=== PATIENT | male | born 2000 | race African-American/Black ===

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

== ENCOUNTER 2020-10-06 08:33 | Emergency (ER) | payer BC, SELFPAY ==
[2020-10-06 08:34] VITALS: BP 155/81; PULSE 124; RESP 16; TEMP 36.7; O2SAT 100; BMI 20.3
--- NOTE | 2020-10-06 08:58 | US_ITS ---
. INDICATION: Testicular pain -- LEFT TESTICULAR PAIN ALMOST A MONTH SOMETIMES THE RIGHT TOO EXAMINATION: Ultrasound US Scrotum (Contents) TECHNIQUE: Realtime ultrasound of the testicles was performed with grayscale, Color Doppler and spectral Doppler analysis. COMPARISON: None. FINDINGS: RIGHT: TESTIS: 4.3 cm x 2.7+ or by 2.2. Normal in size and echotexture, without focal lesion. COLOR DOPPLER: Normal arterial flow present in the testicle with monophasic waveforms. EPIDIDYMIS: Normal in size and echotexture, without focal lesion. [Normal color Doppler flow pattern in the epididymis. HYDROCELE: None. VARICOCELE: None. LEFT: TESTIS: 4.2 cm x 2.75 x 2.1. Normal in size and echotexture, without focal lesion. COLOR DOPPLER: Normal arterial flow present in the testicle with monophasic waveforms. EPIDIDYMIS: Normal in size and echotexture, without focal lesion. [Normal color Doppler flow pattern in the epididymis. HYDROCELE: None. VARICOCELE: None. US/Testicular with Arterial Flow IMPRESSION: Unremarkable bilateral testicular ultrasound. Electronically Signed: Dennys Heranndez MD at 11:26 EDT , Service support ,
[2020-10-06 09:25] LABS: Red Blood Cells-Urine 0 SEEN /hpf (0-5)
[2020-10-06 09:29] LABS: Color, Urine Yellow (Yellow); Glucose, Dipstick Normal (Normal); Ketone-Dipstick 15 mg/dl (Negative); Leukocyte Esterase-Dipstick 25 /ul (Negative); Nitrite-Dipstick Negative (Negative); Occult Blood-Urine 10 /ul (Negative); Protein-Dipstick Negative (Negative); Specific Gravity, Urine 1.025 (1.002-1.030); Urine Bilirubin Dipstick Negative (Negative); Urine Clarity Sl. Cloudy (Clear); Urine Urobilinogen Normal (Normal)
[2020-10-06 09:29] LABS: Absolute Neutrophil Count 5.8 X10^3/uL (2.0-7.7); Basophil# 0.05 X10^3/uL; Basophil% 0.6 % (0-1); Eosinophil# 0.05 X10^3/uL; Eosinophils% 0.6 % (0-5); Hematocrit 50.7 % (40-54); Lymphocyte % 21.1 % (19-41); Mean Corp Hgb Conc 33.5 g/dL (32-36); Mean Corpuscular Hgb 26.7 pg (27.0-32.0); Mean Corpuscular Volume 79.6 fL (80-94); Mean Platelet Vol. 10.3 fl (6.2-12.0); Monocyte# 0.83 X10^3/uL; Monocyte% 9.7 % (0-10); NRBC Flagged by Analyzer 0 % (0-5); Neutrophil # 5.78 X10^3/uL (2.7-7.7); Neutrophil % 67.6 % (47-70); Platelet Count 266 K/mm3 (150-450); RBC Distribution Width CV 12.9 % (11.6-14.6); RBC Distribution Width SD 36.7 fl (35.1-43.9); Red Blood Count 6.37 M/mm3 (4.6-6.2); White Blood Count 8.5 K/mm3 (4.4-11.0)
[2020-10-06 09:37] LABS: Bacteria 1+ /hpf (None Seen); Mucous, Urine RARE /hpf (<or=2+); Squamous Epithelial Cells - UA 0-5 SEEN /hpf (0-5); White Blood Cells 0-5 SEEN /hpf (0-5)
[2020-10-06 09:42] LABS: Anion Gap 7 (5-15); BUN 11 mg/dL (7-18); BUN/Creat Ratio 8.9 RATIO (10-20); Calcium,Total 9.3 mg/dL (8.5-10.1); Chloride 101 mmol/L (98-107); Creatinine, Serum 1.24 mg/dL (0.70-1.30); EST Glomerular Filtration Rate 79 mL/min (>60); Est Glom Filt Rate - Afr Amer 95 mL/min (>60); Estimated Creatinine Clearance 79.26 ml/min; Glucose 73 mg/dL (74-106); Potassium 3.9 mmol/L (3.5-5.1); Sodium Level 137 mmol/L (136-145)
--- NOTE | 2020-10-06 11:18 | ED.DCSUM_ITS ---
History of Present Illness Chief Complaint: Male Pain/Injury Narrative: Patient presenting for evaluation secondary to genitourinary pain. Patient states that over the course of about the last month he has been dealing with bilateral testicular pain. He feels as if he has having issues with maintaining an erection as well. He denies any dysuria. He denies any hematuria. He denies any urethral discharge. He reports that he has been undergoing work-up from urgent care, he was tested for sexually transmitted infections and that was noted to be negative. Patient now tells me that he has a minimal amount of suprapubic pressure associated with this. He denies any bulging. He denies any sores on his skin. He is never had any injuries, no prior similar episodes in the past. Patient was referred here by urgent care. Denies any fevers chills night sweats or unintended weight loss. Past Medical History - Allergies and Home Meds Allergies/Adverse Reactions: Allergies amoxicillin [From Augmentin] Allergy (Verified 10/06/20 08:37) Rash clavulanic acid [From Augmentin] Allergy (Verified 10/06/20 08:37) Rash Primary Care Physician: Mike Stephens MD [Primary Care Provider] - Prior records reviewed: Yes Past Medical History: None Surgical History: noncontributory Smoking Status: Current every day smoker Alcohol: None Drugs: None Review of Systems All systems negative except as indicated General: Denies: Chills, Fever, Sweats Eyes: Denies: Visual changes - bilaterally, Diplopia ENT: Denies: Rhinorrhea, Sore throat Cardiovascular: Denies: Chest pain, Palpitations Respiratory: Denies: Dyspnea, Cough, Dyspnea on exertion Gastrointestinal: Denies: Abdominal pain, Nausea, Vomiting, Diarrhea, Melena, Hematochezia Genitourinary: Reports: - - Testicular pain and penile pain Musculoskeletal: Denies: Back pain, Extremity Pain Skin: Denies: Rash, Wounds Neurological: Denies: Headache, Weakness, Numbness Physical Exam Vital Signs/Narrative: Vital Signs Temp Pulse Resp BP Pulse Ox 10/06/20 08:34 98.0 F 124 H 16 155/81 H 100 Inital Vital Signs reviewed: Yes General: Well nourished, Well developed, No Acute Distress Head: Normocephalic, Atraumatic Eyes: Perrl, EOMI. Negative for: Pale conjunctiva, Scleral icterus ENT: Moist mucous membranes, No rhinorrhea Neck: Supple, Nontender Cardiovascular: Regular rhythm, No murmurs, Tachycardia Respiratory: No distress, CTA bilaterally, Chest nontender Abdomen: Soft, Nontender, Nondistended, Normal bowel sounds, - - Patient complains of suprapubic pain but this is not reproducible on palpation : - - Normal external genitalia no evidence of skin lesions. No evidence of inguinal lymphadenopathy. No palpable hernias. Normal inguinal canal. Testicles are in a normal lie. Patient complains of diffuse tenderness to palpation. No palpable masses. Penis appears normal, no urethral discharge. Back: Nontender, Normal Inspection Extremities: Nontender, No edema Skin: Normal color, No rash Neurological: Alert, Oriented x3, Cranial nerves II-XII grossly intact, Normal Strength, Normal Sensation Psychological: Normal affect, Normal Mood Diagnostic/Tx/Re-eval Clinical Impression(s) from Imaging Studies Testicular Ultrasound 10/06/20 08:58 IMPRESSION: Unremarkable bilateral testicular ultrasound. Electronically Signed: Dennys Hernandez MD at 11:26 EDT , Service support , Laboratory Data 10/06/20 10/06/20 10/06/20 08:45 09:00 09:00 WBC 8.5 RBC 6.37 H Hgb 17.0 H Hct 50.7 MCV 79.6 L MCH 26.7 L MCHC 33.5 RDW Std Deviation 36.7 RDW Coeff of Ilan 12.9 Plt Count 266 MPV 10.3 Immature Gran % (Auto) 0.400 Neut % (Auto) 67.6 Lymph % (Auto) 21.1 [place] % (Auto) 9.7 Eos % (Auto) 0.6 Baso % (Auto) 0.6 Absolute Neuts (auto) 5.8 Absolute Lymphs (auto) 1.80 Nucleated RBC % 0 Sodium 137 Potassium 3.9 Chloride 101 Carbon Dioxide 29.0 Anion Gap 7 BUN 11 Creatinine 1.24 Estim Creat Clear Calc 79.26 Est GFR (MDRD) Af Amer 95 Est GFR (MDRD) Non-Af 79 BUN/Creatinine Ratio 8.9 L Glucose 73 L Calcium 9.3 Urine Color Yellow Urine Clarity Sl. Cloudy Urine pH 5.0 Ur Specific [place] 1.025 Urine Protein Negative Urine Glucose (UA) Normal Urine Ketones 15 H Urine Occult Blood 10 H Urine Nitrite Negative Urine Bilirubin Negative Urine Urobilinogen Normal Ur Leukocyte Esterase 25 H Urine RBC 0 SEEN Urine WBC 0-5 SEEN Ur Squamous Epith Cells 0-5 SEEN Urine Bacteria 1+ Urine Mucus RARE - Medical Decision Making Patient presenting secondary to genitourinary pain. Patient was significantly tachycardic on arrival, IV was established laboratory studies were obtained. CBC chemistry found to be unremarkable. Patient does not have a history of sickle cell disease or trait I do not think that this is a presentation of a high flow or low flow priapism. Testicular ultrasound was obtained was found to be negative. Urinalysis does not show significant evidence of infection. Truthfully on a physical exam standpoint the patient has a completely normal exam. I will refer the patient to urology for further work-up and treatment. Patient was discharged in improved condition with a heart rate of 80. ED Disposition - Plan for ED Patient: Disposition: Home or Assisted Living Diagnosis: Testicular pain Instructions: ED Testicular Pain, Unclear Cause Referrals: Yunior Jordan MD [STAFF PHYSICIAN] - 1-2 Weeks
[2020-10-06 11:40] VITALS: BP 110/66; PULSE 80; RESP 16; O2SAT 99
== END 2020-10-06 12:12 | disposition home or self-care (01) ==
PROVIDERS: Emergency Provider Emergency Medicine; PCP Pediatrics
DX: N50.812 Left testicular pain (principal); N50.811 Right testicular pain; F17.200 Nicotine dependence, unspecified, uncomplicated; Z88.0 Allergy status to penicillin; Z88.1 Allergy status to other antibiotic agents
CPT/HCPCS: 76870; 80048; 81001; 85025; 93976; 99283; A4216

== ENCOUNTER 2020-12-22 10:56 | Emergency (ER) | payer BC, SELFPAY ==
[2020-12-22 10:57] VITALS: BP 148/90; PULSE 100; RESP 16; TEMP 36.4; O2SAT 99; BMI 24.2
--- NOTE | 2020-12-22 11:08 | US_ITS ---
STUDY: SCROTUM ULTRASOUND REASON FOR EXAM: Male, 20 years old. Bilateral testicular pain worse on the left side. TECHNIQUE: Ultrasound evaluation of the scrotum was performed with color Doppler and static cruz-scale imaging. COMPARISON: None. FINDINGS: RIGHT TESTICLE INTRATESTICULAR: There is a normal size of the right testicle. The right testicle measures 4.3 cm x 2.7 cm x 2.3 cm. There is a homogenous echotexture. There is normal arterial and normal venous vascularity. There is no demonstrated right testicular mass or cyst. EXTRATESTICULAR: The epididymis is normal in size. The epididymis head measures 1 cm x 1.6 cm x 0.8 cm. There is normal vascularity of the epididymis. There is no demonstrated epididymal cystic structure. There is no demonstrated hydrocele. There is no demonstrated varicocele. There is no demonstrated extratesticular mass or cyst. LEFT TESTICLE INTRATESTICULAR: There is a normal size of the left testicle. The left testicle measures 4.3 cm x 2.7 cm x 2.1 cm. There is a homogenous echotexture. There is normal arterial and normal venous vascularity. There is no demonstrated left testicular mass or cyst. EXTRATESTICULAR: The epididymis is normal in size. The epididymis head measures 1.1 cm x 1.6 x 0.9 cm. There is normal vascularity of the epididymis. There is a well-defined cystic structure within the epididymis, without internal echoes, consistent with an epididymal cyst. This measures 4 mm x 4 mm x 3 mm. There is no demonstrated hydrocele. There is no demonstrated varicocele. There is no demonstrated extratesticular mass or cyst. US/Testicular with Arterial Flow IMPRESSION: Small left epididymal cyst. Electronically Signed: Dennys Hernandez MD at 12:50 EDT , Service support ,
--- NOTE | 2020-12-22 11:12 | EX.ED.GUMALE ---
HPI History of Present Illness Chief Complaint: Male Pain/Injury Informant: patient Narrative Narrative: Patient is a 20-year-old male presenting with 2 weeks of testicular pain and difficulty sustaining an erection. He also feels that his penis has shrunk in girth. Patient notes he has pain in his bilateral testicles. He is worried that he does not have enough blood flow to his testicles. He states the pain has been gradual in onset. Is been constant. He is not taking anything for pain and just tries to sleep it off. Patient states he has pain when he urinates but his pain in his testicles. He denies any burning sensation, hematuria or penile discharge. He denies any history of SD presentation a couple months ago where he was evaluated in the ER and told everything was fine so he never followed up. He states this time it is worse. He does not take any medication on a daily basis. He states he has a family history of colon polyps and has to get a colonoscopy every year and was told he has to have part of his colon removed. He states this is followed to the [facility]. He does not take any medication on a daily basis. No other complaints or concerns at this time. [facility] Medical History Colon polyps Home Medications NK 12/11/19 [History Last Taken Unknown] Allergy/AdvReac Type Severity Reaction Status Date / Time amoxicillin [From Augmentin] Allergy Rash Verified 12/22/20 10:59 clavulanic acid Allergy Rash Verified 12/22/20 10:59 [From Augmentin] Social History Smoking Status: Current every day smoker tobacco type: cigarettes ROS ROS ED Constitutional Constitutional ED: Denies chills, fever(s) or malaise Eyes Eyes: Denies blurry vision or loss of vision ENT ENT ED: Denies rhinorrhea or sore throat Cardiovascular Cardiovascular: Denies chest pain or dizziness Respiratory/Chest Respiratory/Chest: Denies cough or dyspnea Gastrointestinal Gastrointestinal: Denies nausea or vomiting Genitourinary Genitourinary ED: Reports dysuria and other Details: Testicular pain, difficulty sustaining an erection ; Denies hematuria Musculoskeletal Musculoskeletal: Denies arthralgias or myalgias Integumentary Denies rash or wounds Neurologic Neurologic: Denies focal weakness or headache(s) Psychiatric Psychiatric: Denies anxiety or behavioral changes EXAM Physical Exam Const Vital Signs: 12/22/20 10:57 Temperature 97.6 F L Temperature Source Temporal Pulse Rate 100 Respiratory Rate 16 Blood Pressure 148/90 H Blood Pressure Mean 109 Pulse Ox 99 Oxygen Delivery Method Room Air Positive well nourished, well developed and no apparent distress General Appearance ED: well developed HEENT Reports normocephalic atraumatic Nose: no nasal discharge General Ear: hearing grossly impaired External Ear: external ears normal Mouth ED: Yes moist mucous membranes abnormal Mouth: moist mucous membranes abnormal Eyes PERRL and EOMs intact bilaterally Neck full ROM and no meningeal signs Chest Wall inspection of chest normal Resp normal respiratory effort and normal air movement Cardio regular rate and regular rhythm GI normal to inspection, nondistended, normoactive bowel sounds Penis: normal penis and circumcised; Negative for discharge Meatus: meatus normal; Negative for meatal discharge Scrotum: testes descended bilaterally and cremasteric reflex present; Negative for tenderness, scrotal swelling, lesions or scrotal mass Testes: testicular lie normal; Negative for testicular tenderness Back/Spine no CVA tenderness Extremity normal to inspection and full ROM Neuro oriented x3 and no focal motor deficits Sensorium / Orientation: alert Psych mental status grossly normal and thought process normal Skin no rashes or lesions noted and no wounds MDM MDM MDM Narrative Medical decision making narrative: Patient is evaluated for testicular pain, concern of torsion as well as difficulty with maintaining interaction. Patient given Motrin for pain control. Urinalysis does show leukoesterase but no bacteria. Gonorrhea and Chlamydia are negative. Ultrasound obtained shows a small epididymal cyst but no signs of torsion or epididymitis. Physical exam is normal. Had previously discussed with patient need to follow-up with urology however patient eloped from the ER before results can be reviewed with him and discharge instructions could be given. Lab Data Labs: Laboratory Results - last 24 hr 12/22/20 12/22/20 11:13 11:13 Urine Color Yellow Urine Clarity Sl. Cloudy Urine pH 7.0 Ur Specific [place] 1.010 Urine Protein Negative Urine Glucose (UA) Normal Urine Ketones 5 H Urine Occult Blood 10 H Urine Nitrite Negative Urine Bilirubin Negative Urine Urobilinogen 1 H Ur Leukocyte Esterase 100 H Urine RBC 0-5 SEEN Urine WBC 0-5 SEEN Ur Squamous Epith Cells 0-5 SEEN Urine Bacteria 0 SEEN Urine Mucus 0 SEEN Chlam trachomat DNA PCR Negative N.gonorrhoeae DNA (PCR) Negative Radiography Diagnostic Testing: Radiology Impression Testicular Ultrasound 12/22/20 11:08 IMPRESSION: Small left epididymal cyst. Electronically Signed: Dennys Hernandez MD at 12:50 EDT , Service support , Discharge Plan Triage Chief Complaint: Male Pain/Injury ED Provider: Daksha Diez Dx/Rx/DC Orders Clinical Impression: Pain in both testicles Prescriptions: No Action NK RF: 0 Primary Care Provider: Mike Stephens Referrals: Mike Stephens MD [Primary Care Provider] - Disposition Disposition: Elopement Discharge Date/Time: 12/22/20 13:30
[2020-12-22 11:18] LABS: Bacteria 0 SEEN /hpf (None Seen); Mucous, Urine 0 SEEN /hpf (<or=2+)
[2020-12-22] MEDS: Ibuprofen 200 MG Tablet 400 MG PO (11:18)
[2020-12-22 11:19] LABS: Color, Urine Yellow (Yellow); Glucose, Dipstick Normal (Normal); Ketone-Dipstick 5 mg/dl (Negative); Leukocyte Esterase-Dipstick 100 /ul (Negative); Nitrite-Dipstick Negative (Negative); Occult Blood-Urine 10 /ul (Negative); Protein-Dipstick Negative (Negative); Urine Bilirubin Dipstick Negative (Negative); Urine Clarity Sl. Cloudy (Clear); Urine Urobilinogen 1 mg/dl (Normal)
[2020-12-22 11:26] LABS: Red Blood Cells-Urine 0-5 SEEN /hpf (0-5); Squamous Epithelial Cells - UA 0-5 SEEN /hpf (0-5); White Blood Cells 0-5 SEEN /hpf (0-5)
[2020-12-22 13:36] LABS: Chlamydia Trachomatis by PCR Negative (Negative); Neisserai gonorrhoeae by PCR Negative (Negative); Probe Check PASS; Sample Adequacy Control PASS; Specimen Processing Control PASS
== END 2020-12-22 13:30 | disposition left against medical advice (07) ==
LOC: ED 11:58
PROVIDERS: Emergency Provider Emergency Medicine; PCP Pediatrics
DX: N50.812 Left testicular pain (principal); N50.811 Right testicular pain; N50.3 Cyst of epididymis; F17.210 Nicotine dependence, cigarettes, uncomplicated
CPT/HCPCS: 76870; 81001; 87491; 87591; 93976; 99283

== ENCOUNTER 2021-02-05 19:26 | Emergency (ER) | payer BC, SELFPAY ==
[2021-02-05] MEDS: Naloxone 2 MG/2 ML Syringe IV ×2 (19:26→19:27)
[2021-02-05] MEDS: Naloxone 2 MG/2 ML Syringe NASAL (19:26)
[2021-02-05 19:27] VITALS: BP 0/0; PULSE 40; RESP 0; TEMP 36.1; BMI 19.2
--- NOTE | 2021-02-05 19:33 | ED.RN ---
RN CALLED FOR EKG, NO OLD EKGS IN MUSE
--- NOTE | 2021-02-05 19:44 | ED.RN ---
pt delivered to ER unresponsive via private car from apparent drug overdose per cousin in the car. pt was given 1 round of 2mg narcan nasally and 2 rounds of 2mg narcan IV. pt awoke after the third dose. mother to patients bedside when he became responsive to help give medically history
[2021-02-05 19:56] VITALS: BP 122/93; PULSE 102; RESP 20; O2SAT 98
--- NOTE | 2021-02-05 20:00 | EKG12_ITS ---
Test Reason : OVERDOSE Blood Pressure : / mmHG Vent. Rate : 099 BPM Atrial Rate : 099 BPM P-R Int : 140 ms QRS Dur : 090 ms QT Int : 344 ms P-R-T Axes : 058 076 034 degrees QTc Int : 441 ms Normal sinus rhythm Normal ECG Confirmed by YARA REYES, JOSHUA ([id number]), staff editor ESTEBAN ARAGON ([id number]) on 02/09/2021 10:23:53 AM Referred By: Confirmed By:JOSHUA LIVINGSTON MD
--- NOTE | 2021-02-05 20:23 | EDS_ITS ---
HPI History of Present Illness Chief Complaint: Overdose Informant: parent Narrative Narrative: Patient is a 20-year-old male that was dropped off by his mother after being found unresponsive. Patient apparently was in [place] with his cousin today. On arrival patient is diaphoretic and apneic. He is brought emergently back to the emergency room. Mother states he does have a history of overdose after taking Percocet that was laced with fentanyl. Prior similar symptoms: Yes PFSH PFSH Medical History Asthma Colon polyps History of heart attack History of stroke Home Medications NK 12/11/19 [History Last Taken Unknown] Allergy/AdvReac Type Severity Reaction Status Date / Time amoxicillin [From Augmentin] Allergy Rash Verified 02/05/21 19:39 clavulanic acid Allergy Rash Verified 02/05/21 19:39 [From Augmentin] Surgical History History of appendectomy Social History Smoking Status: Current every day smoker tobacco type: cigarettes ROS ROS ED Review of Systems ROS Unobtainable: due to mental status EXAM Physical Exam Const Vital Signs: 02/05/21 19:27 02/05/21 19:35 02/05/21 19:56 Temperature 97.0 F L Temperature Source Temporal Pulse Rate 40 L 102 H Respiratory Rate 0 L 20 H Respiratory Effort Agonal Respiratory Pattern Apnea Blood Pressure 0/0 L 122/93 H Blood Pressure Mean 102 Pulse Ox 98 Oxygen Delivery Method Ambu-Bag Room Air 02/05/21 21:00 02/05/21 22:01 02/05/21 22:13 Temperature Temperature Source Pulse Rate 91 71 82 Respiratory Rate 26 H 8 L 15 Respiratory Effort Respiratory Pattern Blood Pressure 115/85 H 115/82 H 125/78 H Blood Pressure Mean 95 Pulse Ox 100 96 98 Oxygen Delivery Method Room Air Positive well nourished and well developed Constitutional Narrative: Acute respiratory distress General Appearance ED: well developed HEENT Reports moist mucous membranes atraumatic Eyes EOMs intact bilaterally Eyes Narrative: Pinpoint pupils Neck supple and no JVD Chest Wall inspection of chest normal Resp Resp Narrative: Apneic Cardio regular rhythm Rate: tachycardic GI soft to palpation, non-tender and non-distended Extremity General Extremety ED: Negative for edema or tenderness General Extremity: Negative for edema Neuro Neuro Narrative: Unresponsive, no spontaneous movement of the extremities Skin Skin Narrative: Diaphoretic Lesions: no lesions MDM MDM MDM Narrative Medical decision making narrative: Patient evaluated for unresponsiveness and apnea. He appears to be an opioid overdose. He is given 2 mg intranasal Narcan and then a total 4 mg IV Narcan. After the second dose of Narcan he started to have spontaneous respirations again. After the third dose he has return of mentation and is answering questions. Patient states that he smoked a blunt today but did not take any pills and is not aware of taking any opioids. Patient will be monitored for at least 2 hours to ensure that he does not have any recurrent symptoms once the Narcan wears off. Fingerstick glucose is normal. Protocol EKG obtained which is normal except for sinus tachycardia. Patient is offered detox resources but declines. Rhythm Strip Rhythm Strip: Sinus Tach Rate: 99 EKG Initial EKG: Attestation: I personally reviewed and interpreted this EKG as follows: Interpretation: Sinus Rhythm Comments: Sinus rhythm at a rate of 99 Normal axis Normal intervals Normal ST segments Discharge Plan Triage Chief Complaint: Overdose ED Provider: Daksha Diez Dx/Rx/DC Orders Clinical Impression: Opioid overdose Instructions: ED Overdose, Opiate Prescriptions: No Action NK RF: 0 Primary Care Provider: Mike Stephens Referrals: Mike Stephens MD [Primary Care Provider] - [facility] [STAFF PHYSICIAN] - Disposition Disposition: Home, Self Care Discharge Date/Time: 02/05/21 22:14
[2021-02-05 21:00] VITALS: BP 115/85; PULSE 91; RESP 26; O2SAT 100
[2021-02-05] MEDS: Acetaminophen 500 MG Tablet 1000 MG PO (21:01)
[2021-02-05 22:01] VITALS: BP 115/82; PULSE 71; RESP 8; O2SAT 96
[2021-02-05 22:13] VITALS: BP 125/78; PULSE 82; RESP 15; O2SAT 98
[2021-02-06 07:05] LABS: Bedside Glucose 307 mg/dL (70-110)
== END 2021-02-05 22:14 | disposition home or self-care (01) ==
LOC: ED 20:46
PROVIDERS: Emergency Provider Emergency Medicine; PCP Pediatrics
DX: T40.2X1A Poisoning by other opioids, accidental (unintentional), initial encounter (principal); R06.03 Acute respiratory distress; I25.2 Old myocardial infarction; J45.909 Unspecified asthma, uncomplicated; F17.210 Nicotine dependence, cigarettes, uncomplicated; Z86.73 Personal history of transient ischemic attack (TIA), and cerebral infarction without residual deficits
CPT/HCPCS: 82962; 93005; 99284; J7030; A4216

== ENCOUNTER 2023-01-23 10:45 | Emergency (ER) | payer BC, SELFPAY ==
[2023-01-23 10:46] VITALS: BP 131/86; PULSE 82; RESP 14; TEMP 36.1; O2SAT 97; BMI 22.4
--- NOTE | 2023-01-23 11:21 | EDS_ITS ---
HPI History of Present Illness Chief Complaint: General Illness Informant: patient Narrative Narrative: Patient presents concern for an STI. He has had symptoms for about a week. Penile discharge even when not urinating, some discomfort at the urethral meatus when urinating, soreness in his testicles, and some mild lower abdominal discomfort. No definite fevers or chills or other symptoms. He states he is concerned because his symptoms are not going away, he had unprotected intercourse, and his partner came to contact with an STI from someone else which she did not know until he asked her because of the symptoms. No history of urinary tract infections. [facility] Medical History Asthma Colon polyps History of heart attack History of stroke Home Medications doxycycline monohydrate 100 mg capsule 100 mg PO BID #14 CAPSULES 01/23/23 [Rx Last Taken Unknown] Allergy/AdvReac Type Severity Reaction Status Date / Time amoxicillin [From Augmentin] Allergy Rash Verified 01/23/23 10:46 clavulanic acid Allergy Rash Verified 01/23/23 10:46 [From Augmentin] Surgical History History of appendectomy Social History Smoking Status: Current every day smoker tobacco type: cigarettes ROS ROS ED Constitutional Constitutional ED: Denies chills or fever(s) Gastrointestinal Gastrointestinal: Reports abdominal pain Genitourinary Genitourinary ED: Reports as per HPI, dysuria, penile discharge and scrotal pain Integumentary Denies rash Neurologic Neurologic: Denies headache(s), paresthesias or weakness EXAM Physical Exam Const Vital Signs: 01/23/23 10:46 Temperature 97 F L Temperature Source Temporal Pulse Rate 82 Respiratory Rate 14 Blood Pressure 131/86 H Blood Pressure Mean 101 Pulse Ox 97 Oxygen Delivery Method Room Air Positive well nourished and well developed General Appearance ED: well developed and NAD GI normal to inspection, nondistended, normoactive bowel sounds and non-tender Narrative: Nontender testicles bilaterally. Intact cremasterics. Normal penis, no active discharge, no inguinal lymphadenopathy or other rash. Skin no rashes or lesions noted and no wounds MDM MDM MDM Narrative Medical decision making narrative: Highly suspicious for GC, chlamydia, or both. We will treat him empirically with Rocephin 250 mg IM and doxycycline 100 mg twice daily for 1 week, and we will send a urine specimen for GC and chlamydia. Counseled patient on all of this he is comfortable with that plan, discussed follow-up if this does not take care of of his symptoms. Discharge Plan Triage Chief Complaint: General Illness ED Provider: Gianni Rehman Dx/Rx/DC Orders Clinical Impression: Urethritis, unspecified Instructions: ED STI Male Treated Prescriptions: New doxycycline monohydrate 100 mg capsule 100 mg PO BID Qty: 14 0RF Primary Care Provider: Mike Stephens Referrals: Mike Stephens MD [Primary Care Provider] - 1 Week if not improving Disposition Disposition: Home, Self Care
[2023-01-23] MEDS: Ceftriaxone 500 MG Vial 250 MG IM (12:19)
== END 2023-01-23 12:43 | disposition home or self-care (01) ==
LOC: ED 11:40
PROVIDERS: Emergency Provider Emergency Medicine; PCP Pediatrics; Visit Provider Emergency Medicine
DX: N34.2 Other urethritis (principal); F17.210 Nicotine dependence, cigarettes, uncomplicated; Z90.49 Acquired absence of other specified parts of digestive tract
CPT/HCPCS: 87491; 87591; 96372; 99282